=== PATIENT | male | born 1965 | race Two or more races ===

== ENCOUNTER 2017-07-18 16:16 | Emergency (ER) | payer OTHER ==
[~2017-07-18] VITALS: Ht 167.6 cm; Wt 74.8 kg
[~2017-07-18 16:16] MED LIST: METHADONE HCL5 MG ORAL; NKM; NORCO 10/3251 EA ORAL
[2017-07-18 16:30] VITALS: BP 150/108
[2017-07-18] MEDS ORDERED: LORazepam Inj 2mg/ml 1ml IV ONE (16:45)
[2017-07-18] MEDS ORDERED: Mylanta II UD 30ml ORAL ONE ×2 (16:45→19:00)
[2017-07-18] MEDS ORDERED: Lidocaine 2% Visc 15ml soln ORAL ONE (16:45)
[2017-07-18 16:50] LABS: BASOPHILS % (AUTO) 1.5 % (0.0-2.0); EOSINOPHILS % (AUTO) 1.3 % (0.0-3.0); HEMOGLOBIN 17.8 G/DL (14.2-18.0); LYMPHOCYTES % (AUTO) 44.1 % (20.0-45.0); MEAN CORPUSCULAR VOLUME 91 FL (80-99); MONOCYTES % (AUTO) 6.5 % (1.0-10.0); NEUTROPHILS % (AUTO) 46.6 % (45.0-75.0); PLATELET COUNT 379 K/UL (150-450); RED CELL DISTRIBUTION WIDTH 11.7 % (11.6-14.8); WHITE BLOOD COUNT 6.4 K/UL (4.8-10.8)
[2017-07-18 16:53] LABS: APPEARANCE,URINE CLEAR; BILIRUBIN, URINE NEGATIVE (NEGATIVE); COLOR,URINE PALE YELLOW; GLUCOSE, URINE (UA) NEGATIVE (NEGATIVE); KETONES,URINE NEGATIVE (NEGATIVE); LEUKOCYTE ESTERASE ,URINE NEGATIVE (NEGATIVE); NITRITE,URINE NEGATIVE (NEGATIVE); PH,URINE 5 (4.5-8.0); PROTEIN,URINE NEGATIVE (NEGATIVE); UROBILINOGEN,URINE NORMAL MG/DL (0.0-1.0)
--- NOTE | 2017-07-18 17:04 | Emergency Room Report ---
History of Present Illness General Chief Complaint: Chest Pain Source: Patient Present Illness HPI The patient presents complaining about chest pain. He states his been drinking a lot of alcohol the last few days. Pain is left-side of chest. He feels like he is suffocating when he has this pain. Pain rated 8/10, pressure and burning , not radiating, constant and not exertional. He's been vomiting and states he's been having black tarry bowel movements. He denies having ulcers in the past. He does drink heavily on occasion. Denies any fevers or chills. Denies previous cardiac disorders, smoking, family history, HTN, DM. On his meds reconsideration it states that he's had methadone but he denies taking methadone at this time. No dysuria, productive cough, sore throat, joint pain. Allergies: Coded Allergies: No Known Allergies (Unverified , 12/29/13) Patient History Past Medical History: see triage record Social History: Reports: alcohol use, Denies: smoking Social History Narrative brought by Reviewed Nursing Documentation: PMH: Agreed, PSxH: Agreed Nursing Documentation-PMH Past Medical History: No Stated History Review of Systems All Other Systems: negative except mentioned in HPI Physical Exam Vital Signs Date Time Temp Pulse Resp B/P (MAP) Pulse Ox O2 Delivery O2 Flow Rate FiO2 07/18/17 16:21 97.0 92 14 150/108 99 Room Air Sp02 EP Interpretation: reviewed, normal General Appearance: well appearing, no apparent distress, GCS 15 Head: normocephalic Eyes: bilateral eye PERRL, bilateral eye Scleral Injection ENT: moist mucus membranes Neck: supple Respiratory: lungs clear, normal breath sounds, other - minimal CWT Cardiovascular #1: regular rate, rhythm Cardiovascular #2: 2+ radial (R) Gastrointestinal: normal inspection, normal bowel sounds, non tender, no mass, non-distended Rectal: heme negative stool Musculoskeletal: back normal, gait/station normal, normal range of motion Neurologic: alert, oriented x3, grossly normal Psychiatric: anxious Skin: normal inspection, warm/dry Medical Decision Making Diagnostic Impression: Primary Impression: Gastritis Qualified Codes: K29.20 - Alcoholic gastritis without bleeding Additional Impressions: Alcohol abuse Chest pain Qualified Codes: R07.9 - Chest pain, unspecified ER Course Patient presents with chest pain. DDx: AMI, ACS, gastritis, GERD, pleurisy, chest wall pain amongst others. Exam against PNA or pneumothorax, but CXR indicated. Emergent EKG and labs ordered. Due to low cardiac risk factors and strong suspicion of gastritis, aspirin held. Patient will be treated with IV hydration and ativan, zofran and Pepcid. VS against PE. H/O black stools disconcerting, but guaiac negative now. EKG without injury. CXR normal. Labs with + alcohol, high H/H, negative troponin and lipase. Patient is improved with treatment. Still has some discomfort in his upper abdomen and chest. Cardiac evaluation is negative. No medical emergency present at this time. Discussed with the patient regarding alcohol abuse. His states that this is been a recurrent problem. He states he drinks when he feels "empty inside". He denies suicidal or homicidal ideation. He has attended AA the past but has not persisted to the point sponsor. I discussed with her the Tylenol and. The patient is stable for outpatient observation and treatment. Laboratory Tests Test 07/18/17 16:24 07/18/17 16:45 White Blood Count 6.4 K/UL (4.8-10.8) Red Blood Count 5.80 M/UL (4.70-6.10) Hemoglobin 17.8 G/DL (14.2-18.0) Hematocrit 53.0 % (42.0-52.0) H Mean Corpuscular Volume 91 FL (80-99) Mean Corpuscular Hemoglobin 30.7 PG (27.0-31.0) Mean Corpuscular Hemoglobin Concent 33.6 G/DL (32.0-36.0) Red Cell Distribution Width 11.7 % (11.6-14.8) Platelet Count 379 K/UL (150-450) Mean Platelet Volume 7.7 FL (6.5-10.1) Neutrophils (%) (Auto) 46.6 % (45.0-75.0) Lymphocytes (%) (Auto) 44.1 % (20.0-45.0) Monocytes (%) (Auto) 6.5 % (1.0-10.0) Eosinophils (%) (Auto) 1.3 % (0.0-3.0) Basophils (%) (Auto) 1.5 % (0.0-2.0) Prothrombin Time 10.0 SEC (9.30-11.50) Prothrombin Time INR 1.0 (0.9-1.1) PTT 29 SEC (23-33) Sodium Level 138 MMOL/L (136-145) Potassium Level 4.2 MMOL/L (3.5-5.1) Chloride Level 102 MMOL/L (98-107) Carbon Dioxide Level 22 MMOL/L (21-32) Anion Gap 14 mmol/L (5-15) Blood Urea Nitrogen 15 mg/dL (7-18) Creatinine 1.1 MG/DL (0.55-1.30) Estimate Glomerular Filtration Rate > 60 mL/min (>60) Glucose Level 161 MG/DL (74-106) H Calcium Level 9.1 MG/DL (8.5-10.1) Total Bilirubin 0.5 MG/DL (0.2-1.0) Aspartate Amino Transferase (AST) 37 U/L (15-37) Alanine Aminotransferase (ALT) 57 U/L (12-78) Alkaline Phosphatase 95 U/L (46-116) Troponin I 0.000 ng/mL (0.000-0.056) Total Protein 8.5 G/DL (6.4-8.2) H Albumin 4.1 G/DL (3.4-5.0) Globulin 4.4 g/dL Albumin/Globulin Ratio 0.9 (1.0-2.7) L Lipase 191 U/L (73-393) Serum Alcohol 256 mg/dL Urine Color Pale yellow Urine Appearance Clear Urine pH 5 (4.5-8.0) Urine Specific [place] 1.015 (1.005-1.035) Urine Protein Negative (NEGATIVE) Urine Glucose (UA) Negative (NEGATIVE) Urine Ketones Negative (NEGATIVE) Urine Occult Blood Negative (NEGATIVE) Urine Nitrite Negative (NEGATIVE) Urine Bilirubin Negative (NEGATIVE) Urine Urobilinogen Normal MG/DL (0.0-1.0) Urine Leukocyte Esterase Negative (NEGATIVE) Urine Opiates Screen Negative (NEGATIVE) Urine Barbiturates Screen Negative (NEGATIVE) Phencyclidine (PCP) Screen Negative (NEGATIVE) Urine Amphetamines Screen Negative (NEGATIVE) Urine Benzodiazepines Screen Negative (NEGATIVE) Urine Cocaine Screen Negative (NEGATIVE) Urine Marijuana (THC) Screen Negative (NEGATIVE) EKG Diagnostic Results Rate: normal Rhythm: NSR ST Segments: no acute changes Rhythm Strip Diag. Results EP Interpretation: yes Rhythm: NSR, no PVC's, no ectopy Chest X-Ray Diagnostic Results Chest X-Ray Diagnostic Results : Chest X-Ray Ordered: Yes # of Views/Limited/Complete: 1 View Indication: Chest Pain Interpretation: no consolidation, no effusion, no pneumothorax, no acute cardiopulmonary disease Impression: No acute disease Electronically Signed by: Electronically signed by Dorian Meyer MD Last Vital Signs Date Time Temp Pulse Resp B/P (MAP) Pulse Ox O2 Delivery O2 Flow Rate FiO2 07/18/17 19:23 98.0 78 16 125/86 97 Room Air Status: improved Disposition: HOME, SELF-CARE Condition: Improved Scripts Acetaminophen (Tylenol) 325 Mg Tablet 650 MG ORAL Q6H Y for Prn Pain/Headache/Temp > 101, #20 TAB 0 Refills Prov: Dorian Meyer M.D. 07/18/17 Mag Hydrox/Al Hydrox/Simeth (MAALOX MAXIMUM STRENGTH SUSP) 355 Ml Oral.susp 30 ML PO Q6HR, #240 ML Prov: Dorian Meyer M.D. 07/18/17 Famotidine (PEPCID) 20 Mg Tablet 20 MG ORAL DAILY, #30 TAB 0 Refills Prov: Dorian Meyer M.D. 07/18/17 Dorian Meyer M.D. Jul 18, 2017 17:04
[2017-07-18 17:12] LABS: ALANINE AMINOTRANSFERASE 57 U/L (12-78); ALBUMIN 4.1 G/DL (3.4-5.0); ALBUMIN/GLOBULIN RATIO 0.9 (1.0-2.7); ALKALINE PHOSPHATASE 95 U/L (46-116); ANION GAP 14 mmol/L (5-15); ASPARTATE AMINO TRANSFERASE 37 U/L (15-37); BILIRUBIN,TOTAL 0.5 MG/DL (0.2-1.0); BLOOD UREA NITROGEN 15 mg/dL (7-18); CALCIUM 9.1 MG/DL (8.5-10.1); CARBON DIOXIDE 22 MMOL/L (21-32); CHLORIDE 102 MMOL/L (98-107); CREATININE 1.1 MG/DL (0.55-1.30); POTASSIUM 4.2 MMOL/L (3.5-5.1); SODIUM 138 MMOL/L (136-145)
[2017-07-18 17:23] VITALS: BP 119/101
[2017-07-18 18:28] VITALS: BP 125/86
[2017-07-18] MEDS ORDERED: PEPCID20 MG ORAL (19:16)
[2017-07-18] MEDS ORDERED: TYLENOL325 MG ORAL (19:16)
[2017-07-18] MEDS ORDERED: MAALOX MAXIMUM355 M1 PO (19:16)
[2017-07-18 19:23] VITALS: BP 125/86
--- NOTE | 2017-07-19 20:17 | Cardiology Report ---
APPROVED REPORT EKG Measurement Heart [id number] 130P53 [id number] Normal sinus rhythm Possible Left atrial enlargement Nonspecific T wave abnormality Abnormal ECG
--- NOTE | 2017-07-19 20:17 | Cardiology Report ---
APPROVED REPORT EKG Measurement Heart [id number] [place] 130P53 [id number] Normal sinus rhythm Possible Left atrial enlargement Nonspecific T wave abnormality Abnormal ECG
--- NOTE | 2017-07-19 20:17 | Cardiology Report ---
APPROVED REPORT EKG Measurement Heart [id number] [place] 130P53 [id number] Normal sinus rhythm Possible Left atrial enlargement Nonspecific T wave abnormality Abnormal ECG
== END 2017-07-18 19:25 | disposition home or self-care (01) ==
LOC: EMR 17:50
DX: K29.70 Gastritis, unspecified, without bleeding (principal); F10.10 Alcohol abuse, uncomplicated
CPT/HCPCS: 36415; 80053; 80307; 81003; 83690; 84484; 85025; 85610; 85730; 93005; 96361; 96374; 96375; 99284; G0480; J2405; S0028; 80329

== ENCOUNTER 2018-06-06 22:01 | Emergency (ER) | payer SELFPAY ==
[~2018-06-06] VITALS: Ht 167.6 cm; Wt 86.2 kg
[~2018-06-06 22:01] MED LIST changes: +MAALOX MAXIMUM355 M1 PO; +PEPCID20 MG ORAL; +TYLENOL325 MG ORAL
[2018-06-06 22:15] VITALS: BP 161/113
--- NOTE | 2018-06-06 22:27 | Emergency Room Report ---
History of Present Illness General Chief Complaint: Chest Pain Source: Patient Present Illness HPI Is a 52-year-old male with a history of alcohol abuse. He presents with chief complaint of epigastric pain. Onset for last 2 days. He continue to drink her last drink was 2 hours ago. Pain is sharp in nature burning in nature. No radiation. Pain is 8 out of 10. No diaphoresis. No shortness of breath. No exertional component. Allergies: Coded Allergies: No Known Allergies (Unverified , 12/29/13) Patient History Past Medical History: see triage record, old chart reviewed Past Surgical History: none Pertinent Family History: none Social History: Reports: alcohol use Immunizations: other Reviewed Nursing Documentation: PMH: Agreed; PSxH: Agreed Nursing Documentation-PMH Past Medical History: No Stated History Review of Systems Eye: Denies: eye pain, blurred vision ENT: Denies: ear pain, nose congestion, throat swelling Respiratory: Denies: cough, shortness of breath Cardiovascular: Reports: chest pain; Denies: palpitations Gastrointestinal: Reports: abdominal pain; Denies: diarrhea, nausea, vomiting Musculoskeletal: Denies: back pain, joint pain Skin: Denies: rash Neurological: Denies: headache, numbness Endocrine: Denies: increased thirst, increased urine Hematologic/Lymphatic: Denies: easy bruising All Other Systems: negative except mentioned in HPI Physical Exam Vital Signs Date Time Temp Pulse Resp B/P (MAP) Pulse Ox O2 Delivery O2 Flow Rate FiO2 06/06/18 22:05 97.9 85 16 161/113 96 Room Air 97.9 vitals with high blood pressure Sp02 EP Interpretation: reviewed, normal General Appearance: well appearing, no apparent distress, alert, obese Head: normocephalic, atraumatic Eyes: bilateral eye PERRL, bilateral eye EOMI ENT: hearing grossly normal, normal pharynx Neck: full range of motion, supple, no meningismus Respiratory: chest non-tender, lungs clear, normal breath sounds Cardiovascular #1: regular rate, rhythm, no murmur Gastrointestinal: normal bowel sounds, non tender, no mass, no organomegaly, no bruit, non-distended Musculoskeletal: back normal, gait/station normal, normal range of motion Psychiatric: mood/affect normal Skin: warm/dry Medical Decision Making Diagnostic Impression: Primary Impression: Alcohol abuse Additional Impressions: Gastritis Qualified Codes: K29.20 - Alcoholic gastritis without bleeding Hypertension Qualified Codes: I10 - Essential (primary) hypertension ER Course Is with epigastric pain. This is most likely secondary to alcoholic gastritis. No evidence of ACS, PE, dissection to name a few. Lip pressure improved. We' ll discharge home. Lab Results Impression labs unremarkable EKG Diagnostic Results Rate: normal Rhythm: NSR ST Segments: other - NSST changes Rhythm Strip Diag. Results Rhythm Strip Time: 22:27 EP Interpretation: yes Rate: 75 Rhythm: NSR, no PVC's, no ectopy Last Vital Signs Date Time Temp Pulse Resp B/P (MAP) Pulse Ox O2 Delivery O2 Flow Rate FiO2 06/06/18 22:05 97.9 85 16 161/113 96 Room Air 97.9 Status: improved Disposition: HOME, SELF-CARE Condition: Stable Scripts Hydrochlorothiazide* (HYDROCHLOROTHIAZIDE*) 25 Mg Tablet 25 MG ORAL DAILY, #30 TAB Prov: ROSENDO RUIZ M.D. 06/06/18 Omeprazole Magnesium (PRILOSEC OTC) 20 Mg Tablet. 20 MG ORAL DAILY, #30 TAB Prov: ROSENDO RUIZ M.D. 06/06/18 Additional Instructions: Stop drinking alcohol. Follow-up your doctor in 7 days. Return if symptom worsen. ROSENDO RUIZ M.D. Jun 06, 2018 22:27
[2018-06-06] MEDS ORDERED: Mylanta II UD 30ml ORAL ONE (22:30)
[2018-06-06] MEDS ORDERED: Pantoprazole Inj IVP ONE (22:30)
[2018-06-06 23:12] LABS: BASOPHILS % (AUTO) 1.6 % (0.0-2.0); EOSINOPHILS % (AUTO) 0.9 % (0.0-3.0); HEMATOCRIT 45.3 % (42.0-52.0); HEMOGLOBIN 16.5 G/DL (14.2-18.0); LYMPHOCYTES % (AUTO) 40.4 % (20.0-45.0); MEAN CORPUSCULAR VOLUME 86 FL (80-99); MONOCYTES % (AUTO) 8.4 % (1.0-10.0); NEUTROPHILS % (AUTO) 48.7 % (45.0-75.0); PLATELET COUNT 295 K/UL (150-450); RED BLOOD COUNT 5.27 M/UL (4.70-6.10); RED CELL DISTRIBUTION WIDTH 10.6 % (11.6-14.8); WHITE BLOOD COUNT 5.9 K/UL (4.8-10.8)
[2018-06-06 23:21] LABS: ANION GAP 11 mmol/L (5-15); BLOOD UREA NITROGEN 16 mg/dL (7-18); CALCIUM 8.7 MG/DL (8.5-10.1); CARBON DIOXIDE 24 MMOL/L (21-32); CHLORIDE 102 MMOL/L (98-107); CREATININE 1.1 MG/DL (0.55-1.30); POTASSIUM 3.8 MMOL/L (3.5-5.1); SODIUM 137 MMOL/L (136-145)
[2018-06-06 23:27] LABS: INR 1.1 (0.9-1.1)
[2018-06-06 23:35] LABS: ALANINE AMINOTRANSFERASE 49 U/L (12-78); ALBUMIN 3.7 G/DL (3.4-5.0); ALBUMIN/GLOBULIN RATIO 0.8 (1.0-2.7); ALKALINE PHOSPHATASE 85 U/L (46-116); ASPARTATE AMINO TRANSFERASE 36 U/L (15-37); BILIRUBIN,TOTAL 0.6 MG/DL (0.2-1.0); CKMB 1.6 NG/ML (0.0-3.6); CREATINE KINASE 430 U/L (26-308)
[2018-06-06] MEDS ORDERED: HYDROCHLOROTHIA25 MG ORAL (23:39)
[2018-06-06] MEDS ORDERED: PRILOSEC OTC20 MG ORAL (23:39)
[2018-06-07 05:03] VITALS: BP 115/75
--- NOTE | 2018-06-07 15:48 | Cardiology Report ---
APPROVED REPORT EKG Measurement Heart [id number] 140P44 [id number] Normal sinus rhythm Possible Inferior infarct, age undetermined Abnormal ECG
== END 2018-06-07 | disposition home or self-care (01) ==
LOC: EMR 22:20
DX: F10.10 Alcohol abuse, uncomplicated (principal); K29.70 Gastritis, unspecified, without bleeding; I10 Essential (primary) hypertension
CPT/HCPCS: 36415; 80053; 82550; 82553; 84484; 85025; 85610; 85730; 93005; 96361; 96374; 99284; C9113

== ENCOUNTER 2018-06-16 18:11 | Emergency (ER) | payer SELFPAY ==
[~2018-06-16] VITALS: Ht 152.4 cm; Wt 88.9 kg
[~2018-06-16 18:11] MED LIST changes: +HYDROCHLOROTHIA25 MG ORAL; +PRILOSEC OTC20 MG ORAL
[2018-06-16 18:34] VITALS: BP 140/98
--- NOTE | 2018-06-16 18:50 | Emergency Room Report ---
History of Present Illness General Chief Complaint: Skin Rash/Abscess Source: Patient Present Illness HPI 52-year-old male presents to the emergency department complaining of localized nonpainful extremely itchy rash to the right before meals area 9 days. Patient reports that he noticed rash the day after being in the emergency department and having an IV placed nearby. Patient reports initially started as several small little bumps and has progressed in size and shape. Pt. denies fevers, chills or swollen tender lymph nodes. Denies lesions/rashes elsewhere on the body. Denies new medications or body washes or creams. Denies swelling of the lips, tongue , throat or airway. Denies wheezing, or shortness of breath. Denies recent travel, recent illness or ill contacts. denies blisters , oral lesions, or sloughing of the skin Allergies: Coded Allergies: No Known Allergies (Unverified , 12/29/13) Patient History Past Medical History: see triage record Past Surgical History: none Pertinent Family History: none Reviewed Nursing Documentation: PMH: Agreed; PSxH: Agreed Nursing Documentation-PMH Past Medical History: No Stated History Review of Systems All Other Systems: negative except mentioned in HPI Physical Exam Vital Signs Date Time Temp Pulse Resp B/P (MAP) Pulse Ox O2 Delivery O2 Flow Rate FiO2 06/16/18 18:18 98.7 73 18 140/98 95 Room Air 98.8 Sp02 EP Interpretation: reviewed, normal General Appearance: no apparent distress, alert, GCS 15, non-toxic Head: normocephalic, atraumatic ENT: hearing grossly normal, normal pharynx, no angioedema, normal voice Neck: full range of motion Respiratory: chest non-tender, lungs clear, normal breath sounds, no wheezing, speaking full sentences Cardiovascular #1: regular rate, rhythm, no edema, normal capillary refill Musculoskeletal: back normal, gait/station normal, normal range of motion, non- tender Neurologic: alert, oriented x3, responsive, motor strength/tone normal, sensory intact, normal gait, speech normal, grossly normal Psychiatric: judgement/insight normal Skin: warm/dry, well hydrated, rash - erythematous/maroon plaque noted on the right a/c, small satellite area with group of small erythematous papules. no target lesion appearance, consistent coloring throughout, slight silver sheen on the lateral aspect, no blisters or vessicles. Lymphatic: no adenopathy Medical Decision Making PA Attestation Dr. Horn is my supervising physician whom pt. management has been discussed with. Diagnostic Impression: Primary Impression: Rash and other nonspecific skin eruption ER Course 52-year-old male presents to the emergency department complaining of localized nonpainful extremely itchy rash to the right before meals area 9 days. Patient reports that he noticed rash the day after being in the emergency department and having an IV placed nearby. Patient reports initially started as several small little bumps and has progressed in size and shape. Pt. denies fevers, chills or swollen tender lymph nodes. Denies lesions/rashes elsewhere on the body. Denies new medications or body washes or creams. Denies swelling of the lips, tongue , throat or airway. Denies wheezing, or shortness of breath. Denies recent travel, recent illness or ill contacts. denies blisters , oral lesions, or sloughing of the skin Ddx considered but are not limited to cellulitis, scabies, shingles, varicella, dermatitis, urticaria, eczema, tinea, viral exanthem, SJS Vital signs: are WNL, pt. is afebrile H&PE are most consistent with localized dermatitis, plaque appearance more consistent with eczema, however contact dermatitis also likely. no evidence of systemic symptoms. ORDERS: none required at this time, the diagnosis is clinical ED INTERVENTIONS: -Prednisone PO DISCHARGE: At this time pt. is stable for d/c to home. Will provide printed patient care instructions, and any necessary prescriptions. Care plan and follow up instructions have been discussed with the patient prior to discharge. Last Vital Signs Date Time Temp Pulse Resp B/P (MAP) Pulse Ox O2 Delivery O2 Flow Rate FiO2 06/16/18 18:34 98.8 73 18 140/98 95 Room Air 98.8 Disposition: HOME, SELF-CARE Condition: Stable Scripts Prednisone* (PREDNISONE*) 20 Mg Tablet 40 MG ORAL DAILY for 5 Days, #10 TAB Prov: Myrtle Faulkner 06/16/18 Triamcinolone Acet (Triamcinolone Acetonide) 60 Ml Lotion 1 APPLIC APPLIC BID, #60 ML Prov: Myrtle Faulkner 06/16/18 Diphenhydramine Hcl (BENADRYL ALLERGY) 25 Mg Tablet 1-2 TAB PO Q8HR, #30 TAB Prov: Myrtle Faulkner 06/16/18 Patient Instructions: Rash Additional Instructions: Take medications as directed. Follow up with a Primary Care Provider in 3-5 days for DERMATOLOGY REFERRAL , even if your symptoms have resolved. --Please review list of primary care clinics, if you do not already have a primary care provider Return sooner to ED if new symptoms occur, or current symptoms become worse. Do not drink alcohol, drive, or operate heavy machinery while taking Benadryl as this may cause drowsiness. - Please note that this Emergency Department Report was dictated using [email or web address] representative technology software, occasionally this can lead to erroneous entry secondary to interpretation by the dictation equipment. Myrtle Faulkner Jun 16, 2018 18:49
[2018-06-16] MEDS ORDERED: PREDNISONE20 MG ORAL (18:51)
[2018-06-16] MEDS ORDERED: KENALOG 0.1% LO60 ML APPLIC (18:51)
[2018-06-16] MEDS ORDERED: BENADRYL ALLERG25 M1 PO (18:51)
[2018-06-16 19:04] VITALS: BP 140/98
== END 2018-06-16 19:04 | disposition home or self-care (01) ==
LOC: EMR 18:47
DX: R21 Rash and other nonspecific skin eruption (principal)
CPT/HCPCS: 99283; J7512